=== PATIENT | male | born 1995 | race Caucasian/White ===

== ENCOUNTER 2018-12-29 20:24 | Emergency (ER) | payer BC ==
[~2018-12-29] VITALS: Ht 170.2 cm; Wt 77.0 kg
[~2018-12-29 20:24] MED LIST: CETI10CA PO; LORA-441 PO
[2018-12-29 20:28] VITALS: Ht 170.2 cm; Wt 77.0 kg
[2018-12-29] MEDS ORDERED: LORAZEPAM 1 MG TAB PO ONE (21:30)
[2018-12-29 22:04] VITALS: BP 127/69; PULSE 88; RESP 18
== END 2018-12-29 22:12 | disposition home or self-care (01) ==
LOC: FTE 20:24
DX: F41.9 Anxiety disorder, unspecified (principal); F17.210 Nicotine dependence, cigarettes, uncomplicated; Z85.828 Personal history of other malignant neoplasm of skin
CPT/HCPCS: 93005; Z7502; Z7610

== ENCOUNTER 2019-02-01 00:59 | Emergency (ER) | payer BC ==
[~2019-02-01] VITALS: Ht 170.2 cm; Wt 80.3 kg
[2019-02-01 01:10] VITALS: BP 122/79; PULSE 72; RESP 18; Ht 170.2 cm; Wt 80.3 kg
[2019-02-01] MEDS ORDERED: AZITHROMYCIN 500 MG TAB PO ONE (02:00)
[2019-02-01] MEDS ORDERED: CEFTRIAXONE 250 MG INJ IM ONE (02:00)
[2019-02-01] MEDS ORDERED: LIDOCAINE 1% (MPF) 5 ML VIAL INFIL ONE (02:00)
== END 2019-02-01 02:54 | disposition home or self-care (01) ==
LOC: FTE 00:59
DX: F41.9 Anxiety disorder, unspecified (principal); F17.210 Nicotine dependence, cigarettes, uncomplicated; T78.40XA Allergy, unspecified, initial encounter; R06.02 Shortness of breath; Z20.2 Contact with and (suspected) exposure to infections with a predominantly sexual mode of transmission; Z85.828 Personal history of other malignant neoplasm of skin
CPT/HCPCS: 71045; 87591; 93005; 96372; J0696; Z7502; Z7610